=== PATIENT | male | born 1945 | race Caucasian/White ===

== ENCOUNTER 2025-04-23 13:20 | Emergency (ER) | payer OTHER ==
[2025-04-23] MEDS ORDERED: Ketorolac Tromethamine 30 MG (1 mL) VIAL ONE (14:24)
== END 2025-04-23 16:05 ==
LOC: EEVIPCON 13:20 → NAV ERS 13:20
DX: M70.71 Other bursitis of hip, right hip (principal); J45.909 Unspecified asthma, uncomplicated; Z79.51 Long term (current) use of inhaled steroids
CPT/HCPCS: 96372; J1885